=== PATIENT | male | born 2000 | race Caucasian/White ===

== ENCOUNTER 2024-08-03 19:35 | Emergency (ER) | payer BC ==
[2024-08-03 19:57] VITALS: BP 131/88; RESP 18; TEMP 98.4; BMI 21.6
[2024-08-03] MEDS ORDERED: ACETAMINOPHEN 500 MG TABLET (FP) ONE (20:13)
[2024-08-03] MEDS: ACETAMINOPHEN 500 MG TABLET (FP) PO ONE (20:28)
[2024-08-03 20:54] VITALS: PULSE 86
== END 2024-08-03 20:58 | disposition home or self-care (01) ==
LOC: FER 19:35
DX: R50.9 Fever, unspecified (principal); J39.8 Other specified diseases of upper respiratory tract; R05.9 Cough, unspecified; R07.89 Other chest pain; R00.0 Tachycardia, unspecified; R09.89 Other specified symptoms and signs involving the circulatory and respiratory systems
CPT/HCPCS: 0241U-QW; 71046-TC-FY; 99284-25